=== PATIENT | male | born 2000 | race African-American/Black ===

== ENCOUNTER 2024-02-05 22:43 | Inpatient (IN) | payer OTHER ==
[~2024-02-05] VITALS: Ht 172.7 cm; Wt 59.9 kg
[2024-02-05] MEDS ORDERED: METHYLPREDNISOLONE SOD SUCC 125MG/2ML (ACT-O-VIAL) IV STA (22:51)
[2024-02-05 23:30] LABS: HEMATOCRIT. 42.1 % (42.0-52.0); HEMOGLOBIN. 13.9 g/dL (14.0-18.0); MEAN CORPUSCULAR HEMOGLOBIN 30.9 pg (28.0-32.0); MEAN CORPUSCULAR HGB CONC 33.1 g/dL (31.0-37.0); MEAN CORPUSCULAR VOLUME 93.5 fL (80.0-94.0); MEAN PLATELET VOLUME 6.8 fl (7.4-10.4); PLATELET 423 x1000/uL (130-400); RED BLOOD CELL COUNT 4.51 mill/uL (4.7-6.1); RED CELL DISTRIBUTION WIDTH 13.5 % (11.6-14.6); WHITE BLOOD COUNT 14.4 x1000/uL (4.5-11.0)
[2024-02-05] MEDS: IPRATROPIUM BROMIDE (0.02%) 0.5MG/2.5ML NEB HHN STA (23:30)
[2024-02-05] MEDS: ALBUTEROL (0.083%) 2.5MG/3ML NEB HHN SCH (23:31)
[2024-02-05 23:33] LABS: CHLORIDE 105 mEq/L (98-107); DIFFERENTIAL COMMENT 1; POTASSIUM 3.8 mEq/L (3.5-5.1); SODIUM 140 mEq/L (136-145)
[2024-02-05 23:34] LABS: CARBON DIOXIDE 21 mEq/L (21-32)
[2024-02-05 23:38] VITALS: PULSE 102; RESP 20; O2SAT 99
[2024-02-05 23:39] LABS: GLUCOSE 159 mg/dL (70-105); UREA NITROGEN BLOOD 6 mg/dL (9-23)
[2024-02-05] MEDS: METHYLPREDNISOLONE SOD SUCC 125MG/2ML (ACT-O-VIAL) IV NR (23:54)
[2024-02-05] MEDS: MAGNESIUM 2 G PREMIX 50 ML IV ONE (23:56)
[2024-02-05] MEDS: SODIUM CHLORIDE 0.9% 1,000 ML IV ONE (23:56)
[2024-02-06] VITALS (43 sets, daily range): BP systolic 91–150; BP diastolic 57–119; PULSE 75–119; RESP 13–25; TEMP 97.6–98; O2SAT 97–99
[2024-02-06 00:06] LABS: ATYPICAL LYMPHOCYTES 1; GIANT PLATELETS FEW; PLATELET ESTIMATE NORMAL; TEAR DROP CELLS 1+
[2024-02-06] MEDS: IPRATROPIUM BROMIDE (0.02%) 0.5MG/2.5ML NEB HHN STA (01:40)
[2024-02-06] MEDS: ALBUTEROL (0.083%) 2.5MG/3ML NEB HHN STA (01:41)
[2024-02-06] MEDS: SODIUM CHLORIDE 0.9% 1,000 ML IV ONE ×2 (02:06→04:35)
[2024-02-06 02:47] LABS: BG BASE EXCESS -7.4 mmol/L (-2.0-2.0); BG DEOXYHEMOGLOBIN 0.4 % (0.0-5.0); BG FRACTION INSPIRED OXYGEN 60; BG HCO3 ACT 18.1 mmol/L (22.0-26.0); BG METHEMOGLOBIN 0.2 % (0.0-1.5); BG OXYGEN SATURATION 99.6 % (92.0-98.5); BG OXYHEMOGLOBIN 99.4 % (94.0-97.0); BG PCO2 36.7 mmHg (35.0-45.0); BG SAMPLE SITE LEFT RADIAL; BG TOTAL HEMOGLOBIN 13.6 g/dL (12.0-18.0); BG VENT MODE MASK - BIPAP
[2024-02-06] MEDS ORDERED: CLONIDINE 0.1MG TABLET PO PRN (10:15)
[2024-02-06] MEDS ORDERED: ACETAMINOPHEN 325MG TABLET PO PRN (10:15)
[2024-02-06] MEDS ORDERED: DIPHENHYDRAMINE 50MG/ML VIAL IV PRN (10:15)
[2024-02-06] MEDS: METHYLPREDNISOLONE SOD SUCC 40MG/ML (ACT-O-VIAL) IV SCH (12:13)
[2024-02-06] MEDS: FAMOTIDINE 20MG/2ML VIAL IV SCH (17:44)
[2024-02-06] MEDS: IPRATROPIUM/ALBUTEROL 0.5-3(2.5)MG/3ML NEB HHN SCH (20:46)
[2024-02-06] MEDS: BUDESONIDE 0.5MG/2ML NEB HHN SCH (20:47)
[2024-02-06] MEDS: ONDANSETRON HCL 4MG/2ML INJ IV PRN (21:39)
[2024-02-06 21:50] LABS: HEPATITIS B SURFACE ANTIGEN NEGATIVE (Negative)
[2024-02-06 22:12] LABS: HEPATITIS C AB NON REACTIVE (Neg) (Negative)
[2024-02-06] MEDS ORDERED: ZOLPIDEM TARTRATE 5MG TABLET PO PRN (23:15)
[2024-02-07] VITALS (58 sets, daily range): BP systolic 85–135; BP diastolic 51–82; PULSE 67–107; RESP 9–26; TEMP 97.8–98.7; O2SAT 95–97
[2024-02-07 05:56] LABS: HEMATOCRIT. 37.9 % (42.0-52.0); HEMOGLOBIN. 12.4 g/dL (14.0-18.0); MEAN CORPUSCULAR HEMOGLOBIN 30.3 pg (28.0-32.0); MEAN CORPUSCULAR HGB CONC 32.7 g/dL (31.0-37.0); MEAN CORPUSCULAR VOLUME 92.5 fL (80.0-94.0); MEAN PLATELET VOLUME 7.6 fl (7.4-10.4); PLATELET 401 x1000/uL (130-400); RED CELL DISTRIBUTION WIDTH 13.6 % (11.6-14.6); WHITE BLOOD COUNT 17.8 x1000/uL (4.5-11.0)
[2024-02-07 05:57] LABS: CARBON DIOXIDE 28 mEq/L (21-32); CHLORIDE 105 mEq/L (98-107); POTASSIUM 4.6 mEq/L (3.5-5.1); SODIUM 139 mEq/L (136-145)
[2024-02-07 05:59] LABS: CALCIUM 9.6 mg/dL (8.7-10.4)
[2024-02-07 06:03] LABS: CREATININE 0.8 mg/dL (0.6-1.3); GLUCOSE 114 mg/dL (70-105); UREA NITROGEN BLOOD 15 mg/dL (9-23)
[2024-02-07 06:12] LABS: DIFFERENTIAL COMMENT 1
[2024-02-07] MEDS: GUAIFENESIN 600MG ER TABLET PO SCH (10:19)
[2024-02-07 11:26] LABS: PLATELET ESTIMATE SLIGHTLY INCREASED
[2024-02-07] MEDS: ACETYLCYSTEINE 200MG/ML 20% VIAL 4ML INH SCH (15:40)
[2024-02-07] MEDS: MONTELUKAST SODIUM 10MG TABLET PO SCH (17:13)
[2024-02-07] MEDS: METHYLPREDNISOLONE SOD SUCC 40MG/ML (ACT-O-VIAL) IV SCH (21:26)
[2024-02-08] VITALS (10 sets, daily range): BP systolic 101–167; BP diastolic 42–69; PULSE 75–114; RESP 18–22; TEMP 97.2–99.3; O2SAT 97–98
[2024-02-08 07:26] LABS: BASOPHILS % 0.1 % (0.0-2.0); HEMATOCRIT. 39.8 % (42.0-52.0); HEMOGLOBIN. 12.8 g/dL (14.0-18.0); LYMPHOCYTES % 7.7 % (20.0-50.0); MEAN CORPUSCULAR HEMOGLOBIN 29.9 pg (28.0-32.0); MEAN CORPUSCULAR HGB CONC 32.2 g/dL (31.0-37.0); MEAN PLATELET VOLUME 7.6 fl (7.4-10.4); MONOCYTES % 7.1 % (2.0-8.0); NEUTROPHILS % 85.1 % (40.0-76.0); PLATELET 398 x1000/uL (130-400); RED BLOOD CELL COUNT 4.28 mill/uL (4.7-6.1); RED CELL DISTRIBUTION WIDTH 13.6 % (11.6-14.6); WHITE BLOOD COUNT 13.7 x1000/uL (4.5-11.0)
[2024-02-08 07:40] LABS: CHLORIDE 104 mEq/L (98-107); POTASSIUM 4.2 mEq/L (3.5-5.1); SODIUM 139 mEq/L (136-145)
[2024-02-08 07:46] LABS: CARBON DIOXIDE 25 mEq/L (21-32)
[2024-02-08 07:47] LABS: CALCIUM 9.3 mg/dL (8.7-10.4)
[2024-02-08 07:51] LABS: CREATININE 0.8 mg/dL (0.6-1.3); GLUCOSE 108 mg/dL (70-105)
[2024-02-08 07:52] LABS: UREA NITROGEN BLOOD 18 mg/dL (9-23)
[2024-02-09 00:52] VITALS: BP 108/58; PULSE 105; RESP 16; TEMP 97.8
[2024-02-09 02:19] VITALS: PULSE 114; RESP 18; O2SAT 96
[2024-02-09 04:00] VITALS: BP 102/49; PULSE 98; RESP 20; TEMP 97.3
[2024-02-09 08:00] VITALS: BP 108/55; PULSE 91; RESP 16; TEMP 97.7
[2024-02-09] MEDS ORDERED: GUAI600T44 MT (12:02)
[2024-02-09] MEDS ORDERED: NEBU-248 MC (12:02)
[2024-02-09] MEDS ORDERED: MONT-46 MT (12:02)
[2024-02-09] MEDS ORDERED: P20 MT (12:02)
[2024-02-09] MEDS ORDERED: IPRA3AMP9 NEB (12:02)
[2024-02-09] MEDS ORDERED: LORA10TA7 MT (12:02)
[2024-02-09] MEDS ORDERED: FAMO20TA8 MT (12:02)
[2024-02-09 13:05] VITALS: PULSE 70; RESP 18; O2SAT 97
[2024-02-09] MEDS ORDERED: ALBU18HF2 IH (14:08)
[2024-02-09] MEDS ORDERED: FLUT1DIS2 INH (14:08)
[2024-02-09 14:45] VITALS: BP 132/73; PULSE 88; TEMP 98; O2SAT 98
== END 2024-02-09 15:39 | disposition short-term general hospital (02) | DRG 202 ==
LOC: ER 22:43 → MICUNO 02-06 02:10 → EDBEDREQTM 02-06 02:26 → EDBEDREQ 02-06 02:26 → EDBEDREQSVC 02-06 02:26 → MICUNO 02-06 20:45 → 7WST 02-07 23:11
PROVIDERS: ADMIT Internal Medicine; ATTEND Internal Medicine
PROC: 5A09457 Assistance with Respiratory Ventilation, 24-96 Consecutive Hours, Continuous Positive Airway Pressure (ICD-10-PCS; principal; 2024-02-06)
DX: J45.902 Unspecified asthma with status asthmaticus (principal); J96.01 Acute respiratory failure with hypoxia; R65.10 Systemic inflammatory response syndrome (SIRS) of non-infectious origin without acute organ dysfunction; E87.20 Acidosis, unspecified; D72.829 Elevated white blood cell count, unspecified; D64.9 Anemia, unspecified; R73.9 Hyperglycemia, unspecified; Z20.822 Contact with and (suspected) exposure to COVID-19; R00.0 Tachycardia, unspecified
CPT/HCPCS: 36415; 36600; 71045; 80048; 82375; 82805; 85025; 86705; 87340; 87426; 93005; 93970; 94640; 94660; 99291; J2405; J2919; J2920; J3475; J3490; J7030; J7608; J7626